=== PATIENT | male | born 1975 | race Caucasian/White ===

== ENCOUNTER 2018-06-03 10:19 | Emergency (ER) | payer SELFPAY ==
[2018-06-03] MEDS ORDERED: DEXAMETHASONE 10 MG/ML VIAL PO STA (11:18)
--- NOTE | 2018-06-03 11:21 | ED Physician Documentation ---
History of Present Illness - Stated complaint Stated Complaint: LT ARM PX - Chief complaint Chief Complaint: Trauma Ext - History obtained from History obtained from: Patient - History of Present Illness Timing: How many days ago (3) - Additonal information Additional information: 43-year-old male who sleeps in his bed with his and a young child crawls into their bed frequently and he states that when this happens he will have to sleep in an odd position and he notes that several weeks ago he had an issue with his right hand going numb and this was a bit of a problem for about 3 days and this resolved. About 3 days ago he developed a similar symptom in his left hand and now the pain has increased and the entire hand is swollen. He has some numbness to the hand. He did have some numbness to the fourth and fifth digits and now the whole hand feels generally numb. He is able to move the elbow he is not able to move the shoulder without significant pain he has pain over the deltoid and he has pain up into the chest wall. He does not drink alcohol. Review of Systems Constitutional: denies: Fever, Chills, Myalgias Eyes: denies: Decreased vision Ears: denies: Ear pain Nose: denies: Rhinorrhea / runny nose, Congestion Throat: denies: Sore throat Cardiac: denies: Chest pain / pressure, Palpitations Respiratory: denies: Dyspnea, Cough GI: denies: Abdominal Pain, Nausea, Vomiting : denies: Dysuria, Frequency Musculoskeletal: reports: Extremity pain, Extremity swelling. denies: Neck pain, Back pain Neurologic: reports: Numbness. denies: Generalized weakness, Focal weakness PD PAST MEDICAL HISTORY - Present Medications Home Medications: Ambulatory Orders Medication Instructions Recorded Confirmed Hydrocodone/Acetaminophen 1 - 2 each PO Q6H PRN #14 tablet 06/03/18 [Hydrocodon-Acetaminophen 5-325] - Allergies Allergies/Adverse Reactions: Allergies Allergy/AdvReac Type Severity Reaction Status Date / Time No Known Drug Allergies Allergy Verified 06/03/18 10:27 - Social History Does the pt smoke?: No Smoking Status: Never smoker Does the pt drink ETOH?: No Does the pt have substance abuse?: No - Immunizations Immunizations are current?: Yes PD ED PE NORMAL - Vitals Vital signs reviewed: Yes (hypertensive ) - General General: Alert and oriented X 3, No acute distress, Well developed/nourished - HEENT HEENT: Atraumatic, PERRL, EOMI, Ears normal - Neck Neck: Supple, no meningeal sign, No bony TTP - Respiratory Respiratory: No respiratory distress - Back Back: No CVA TTP, No spinal TTP - Derm Derm: Normal color, Warm and dry, No rash - Extremities Extremities: Other (There is swelling to the left hand symetrically and there is tenderness to the left arm over the deltoid and over the volar surface next to the axilla. There is pain into the brachial plexus. I am not able to palpate a cord. There is restricted movement of the shoulder secondary to pain. ) - Neuro Neuro: Alert and oriented X 3, vocational examiner 2-12 intact, No motor deficit, Normal speech Eye Opening: Spontaneous Motor: Obeys Commands Verbal: Oriented GCS Score: 15 - Psych Psych: Normal mood, Normal affect Results - Vitals Vitals: Vital Signs - 24 hr 06/03/18 10:24 Temperature 36.9 C Heart Rate 73 Respiratory 17 Rate Blood Pressure 145/73 H O2 Saturation 100 Oxygen O2 Source Room air - Rads (name of study) duplex veins Radiology: Prelim report reviewed (Impression: No evidence for deep venous thrombosis.), EMP read indepedently, See rad report shoulder left Radiology: Prelim report reviewed (Impression: No acute fracture or dislocation of left shoulder), EMP read indepedently, See rad report PD MEDICAL DECISION MAKING - ED course Complexity details: reviewed old records, reviewed results, re-evaluated patient, considered differential, d/w patient ED course: 43-year-old male with a prior history of cervical laminectomy has developed pain numbness and swelling to his left upper extremity and he woke up this way. I am concerned about the possibility of deep vein thrombosis related to the possibility of the child laying on the arm while the patient was asleep. I have given the patient 10 mg of dexamethasone and we will check his vessels on the left side. The vessels are normal without thrombosis. An x-ray is without evidence of fracture. 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 He will follow up with ortho this coming week. Departure - Departure Disposition: 01 Home, Self Care Clinical Impression: Palsy of axillary nerve Condition: Stable Instructions: ED Paraesthesias Follow-Up: [facility] [Provider Group] Prescriptions: Hydrocodone/Acetaminophen [Hydrocodon-Acetaminophen 5-325] 1 - 2 each PO Q6H PRN #14 tablet PRN Reason: pain Forms: Activity restrictions
[2018-06-03] MEDS ORDERED: CHERRY SYRUP 10 ML UDC PO ONE (11:31)
[2018-06-03] MEDS ORDERED: KETOROLAC 60 MG/2 ML VIAL IM STA (11:52)
--- NOTE | 2018-06-03 12:16 | Ultrasound Report ---
Reason: Left upper ext pain and swelling Procedure Date: 06/03/2018 Accession Number: [id number] / [id number] Procedure: US - Duplex Ext Veins Left CPT Code: FULL RESULT: EXAM: LEFT LOWER EXTREMITY VENOUS ULTRASOUND EXAM DATE: 06/03/2018 12:07 PM. CLINICAL HISTORY: Left arm pain and swelling. COMPARISON: None. TECHNIQUE: Real-time sonographic vascular imaging was performed by the occupational hygienist through the lower extremity utilizing both color-flow and Doppler spectral analysis. Multiple b2b outside sales representative static images were saved for review. FINDINGS: Common Femoral Vein (CFV): Normal. CFV-GSV Junction: Normal. Profunda Femoral Vein (PFV): Normal. Femoral Vein (FV) Prox: Normal. Femoral Vein (FV) Mid: Normal. Femoral Vein (FV) Dist: Normal. Popliteal Vein: Normal. Posterior Tibial Veins: Normal. Peroneal Veins: Normal. Contralateral Side CFV: Normal. Other: None. IMPRESSION: No evidence for deep venous thrombosis. [facility]
--- NOTE | 2018-06-03 14:45 | XRAY Report ---
Reason: pain and decreased ROM Procedure Date: 06/03/2018 Accession Number: [id number] / [id number] Procedure: XR - Shoulder 3 View LT CPT Code: FULL RESULT: EXAM: LEFT SHOULDER RADIOGRAPHY EXAM DATE: 06/03/2018 01:37 PM. CLINICAL HISTORY: Pain and decreased ROM. COMPARISON: None available. TECHNIQUE: 3 views. FINDINGS: Bones: No acute fracture or dislocation. Joints: The glenohumeral and acromioclavicular joints are intact. Soft tissues: There is a round 7 mm metallic density projecting in the region of the left axillary soft tissues, which may represent a retained foreign body. Clinical correlation recommended. IMPRESSION: No acute fracture or dislocation of the left shoulder. [facility]
[2018-06-03 15:11] VITALS: BP 138/72
== END 2018-06-03 15:10 | disposition home or self-care (01) ==
LOC: ED 10:19
DX: G58.8 Other specified mononeuropathies (principal)
CPT/HCPCS: 73030; 93971; 96372; 99283; A9270

== ENCOUNTER 2019-01-11 07:49 | Outpatient (CLI) | payer SELFPAY | END 2019-01-11 07:50 | disposition critical access hospital (66) | LOC: EMS 07:49 | PROVIDERS: ATTEND Surgery | DX: M54.5 Low back pain (principal); R25.2 Cramp and spasm | CPT/HCPCS: A0425; A0429 ==

== ENCOUNTER 2019-01-11 08:03 | Emergency (ER) | payer SELFPAY ==
[2019-01-11] MEDS ORDERED: diazePAM INJ 5 MG/ML SYRINGE IVP STA (08:57)
[2019-01-11] MEDS ORDERED: DEXAMETHASONE 10 MG/ML VIAL IVP STA (08:57)
[2019-01-11] MEDS ORDERED: SODIUM CHLORIDE 0.9% 1,000 ML IV ONE (08:57)
[2019-01-11] MEDS ORDERED: HYDROmorphone 1 MG/ML CARPUJECT IVP STA ×2 (08:57→12:38)
[2019-01-11] MEDS ORDERED: ONDANSETRON 4 MG/2 ML VIAL IVP STA (08:57)
[2019-01-11] MEDS ORDERED: KETOROLAC 30 MG/ML VIAL IVP STA (11:41)
--- NOTE | 2019-01-11 11:44 | ED Physician Documentation ---
PD HPI BACK PAIN - Stated complaint Stated Complaint: BACK PAIN/ SPASMS - Chief complaint Chief Complaint: Back Pain - History obtained from History obtained from: Patient, Family - History of Present Illness Timing - onset: How many days ago (3) Timing - duration: Days (3) Timing - details: Abrupt onset, Still present Location: Lower Quality: Pain, Spasm, Sharp, Similar to prior episodes Associated symptoms: No: Fever, Weakness, Numbness, Incontinent of urine, Unable to urinate, Hematuria, Incontinent of stool Improves with: Nothing Worsened by: Movement Contributing factors: Other (lifted a box 3 days ago with mild pain. Pain worse after a fall in the bathroom yesterday onto the buttocks.) Similar symptoms before: Diagnosis (back spasm) Recently seen: Not recently seen Review of Systems Constitutional: denies: Fever Eyes: denies: Decreased vision Ears: denies: Ear pain Throat: denies: Sore throat Cardiac: denies: Chest pain / pressure Respiratory: denies: Cough GI: denies: Nausea, Vomiting : denies: Dysuria, Frequency Skin: denies: Rash Musculoskeletal: reports: Back pain. denies: Neck pain PD PAST MEDICAL HISTORY - Past Medical History Musculoskeletal: Chronic back pain - Present Medications Home Medications: Ambulatory Orders Medication Instructions Recorded Confirmed Cyclobenzaprine [Flexeril] 10 mg PO TID PRN #20 tablet 01/11/19 Hydrocodone/Acetaminophen 1 - 2 each PO Q6H PRN #14 tablet 01/11/19 [Hydrocodon-Acetaminophen 5-325] - Allergies Allergies/Adverse Reactions: Allergies Allergy/AdvReac Type Severity Reaction Status Date / Time No Known Drug Allergies Allergy Verified 01/11/19 08:10 - Social History Does the pt smoke?: No Smoking Status: Never smoker Does the pt drink ETOH?: No Does the pt have substance abuse?: No - Immunizations Immunizations are current?: Yes PD ED PE NORMAL - Vitals Vital signs reviewed: Yes (hypertensive mild diastolic ) - General General: Well developed/nourished, Other (43 y/o male with periodic severe winching pain appears uncomfortable. ) - HEENT HEENT: Atraumatic, PERRL, EOMI - Neck Neck: Supple, no meningeal sign, No bony TTP - Cardiac Cardiac: RRR, No murmur - Respiratory Respiratory: No respiratory distress, Clear bilaterally - Abdomen Abdomen: Soft, Non tender - Back Back: No CVA TTP, Other (There is severe back spasm with pain in the lumbar paraspinous muscles slightly more on the right. ) - Derm Derm: Normal color, Warm and dry, No rash - Extremities Extremities: No deformity, No edema - Neuro Neuro: Alert and oriented X 3, finish sander 2-12 intact, No motor deficit, No sensory deficit, Normal speech Eye Opening: Spontaneous Motor: Obeys Commands Verbal: Oriented GCS Score: 15 - Psych Psych: Other (mood is painful and the affect is flat ) Results - Vitals Vitals: Vital Signs - 24 hr 01/11/19 01/11/19 01/11/19 08:08 09:18 09:35 Temperature 35.8 C L Heart Rate 65 63 67 Respiratory 20 18 18 Rate Blood Pressure 118/82 H 133/68 H 132/59 H O2 Saturation 100 100 98 01/11/19 01/11/19 01/11/19 10:12 11:48 12:23 Temperature Heart Rate 52 L 62 67 Respiratory 18 18 18 Rate Blood Pressure 123/57 L 145/73 H 128/58 L O2 Saturation 99 100 97 01/11/19 01/11/19 01/11/19 12:49 13:03 14:26 Temperature Heart Rate 48 L 86 Respiratory 18 18 Rate Blood Pressure 123/62 137/75 H O2 Saturation 98 84 L 100 01/11/19 01/11/19 14:48 17:06 Temperature Heart Rate 76 60 Respiratory 16 14 Rate Blood Pressure 137/70 H 133/77 H O2 Saturation 96 100 Oxygen O2 Source Room air Oxygen Flow Rate 2 - Rads (name of study) lumbar spine Radiology: Prelim report reviewed (Impression: Normal lumbar spine radiography.), EMP read indepedently, See rad report PD MEDICAL DECISION MAKING - ED course Complexity details: reviewed old records, reviewed results, re-evaluated patient, considered differential, d/w patient, d/w family ED course: 43-year-old male with acute lumbar spasm is mildly dehydrated on interrogation the inferior vena cava and he is administered normal saline as well as dexamethasone, dilaudid and Zofran. Minimal improvement in his pain and is subsequently administered Toradol with some improvement, but he does not have resolution and is not able to stand up or sit up in the bed without severe spasm. He is subsequently administered another dose of Dilaudid does not really seem to help that much and he is eventually administered morphine. Even this does not resolve the patient's issue. He is eventually given a second dose of morphine 5 mg with 45 mg of ketamine intravenously which does help significantly with his spasms. Patient is very reluctant to stand or get up to move. We wrestled with this throughout the day feeling that he had excessive pain behavior but he really would spasm anytime he tried to get up and move. This was significantly improved after the last round of medications but it took significant help to get him into the car and had to be wheeled out to the ambulance entrance on the [facility] as he refused to sit in a wheelchair for transport. Departure - Departure Disposition: 01 Home, Self Care Clinical Impression: Spasm of back muscles Condition: Stable Instructions: ED Spasm Back No Trauma Follow-Up: [facility] [Provider Group] Prescriptions: Cyclobenzaprine [Flexeril] 10 mg PO TID PRN #20 tablet PRN Reason: Spasms Hydrocodone/Acetaminophen [Hydrocodon-Acetaminophen 5-325] 1 - 2 each PO Q6H PRN #14 tablet PRN Reason: pain Forms: Activity restrictions Discharge Date/Time: 01/11/19 18:27
--- NOTE | 2019-01-11 12:40 | XRAY Report ---
Reason: fall severe low back pain Procedure Date: 01/11/2019 Accession Number: [id number] / [id number] Procedure: XR - Lumbar Spine 2 View CPT Code: FULL RESULT: EXAM: LUMBOSACRAL SPINE RADIOGRAPHY EXAM DATE: 01/11/2019 11:56 AM. CLINICAL HISTORY: Fall severe low back pain. COMPARISONS: None. TECHNIQUE: 2 views. FINDINGS: Alignment: Normal. No spondylolisthesis or scoliosis. Bones: Five [id number] lumbar vertebral bodies are present. No fractures or bone lesions. Disks: Normal. Disk heights are maintained. Facets: No degenerative changes. Sacroiliac Joints: Unremarkable. Soft Tissues: Normal. The visualized bowel gas pattern is normal. IMPRESSION: Normal lumbar spine radiography. [facility]
[2019-01-11] MEDS ORDERED: CYCLOBENZAPRINE 10 MG TABLET PO STA (14:22)
[2019-01-11] MEDS ORDERED: MORPHINE 10 MG/ML VIAL IM STA (14:58)
[2019-01-11] MEDS ORDERED: MORPHINE 10 MG/ML VIAL IVP STA (16:30)
[2019-01-11] MEDS ORDERED: KETAMINE 500 MG/10 ML VIAL IVP STA (16:30)
[2019-01-11 17:06] VITALS: BP 133/77
== END 2019-01-11 18:27 | disposition home or self-care (01) ==
LOC: EDUNIT# → ED 08:03
DX: M62.830 Muscle spasm of back (principal); E86.0 Dehydration
CPT/HCPCS: 72100; 96361; 96372; 96374; 96375; 99283; 99285; A9270; J1170